=== PATIENT | female | born 1980 ===

== ENCOUNTER 2018-08-31 16:08 | Emergency (ER) | payer SELFPAY ==
[2018-08-31 16:23] VITALS: BP 105/73; PULSE 97; RESP 16; TEMP 99.8; O2SAT 98
--- NOTE | 2018-08-31 17:01 | C.PDOC ---
History Of Present Illness 38-year-old female presents to the ED complaining of generalized, intermittent hives, ongoing for the past couple of days. Patient reports generalized itching. She has a history of asthma, denies any symptoms of exacerbation. Patient reports having previous outpatient allergy testing which revealed the she is allergic to everything. She denies any lip/tongue swelling, difficulty swallowing, difficulty breathing, or fever. Time Seen by Provider: 08/31/18 16:52 Chief Complaint (Nursing): Allergic Reaction History Per: Patient History/Exam Limitations: no limitations Onset/Duration Of Symptoms: Days Current Symptoms Are (Timing): Still Present Possible Cause: Unknown Past Medical History Reviewed: Historical Data, Nursing Documentation, Vital Signs Vital Signs: Last Vital Signs Temp 99.8 F H 08/31/18 16:23 Pulse 97 H 08/31/18 16:23 Resp 16 08/31/18 16:23 BP 105/73 08/31/18 16:23 Pulse Ox 98 08/31/18 16:23 Surgical History: Other Surgeries: Hysterectomy Family History: States: No Known Family Hx - Social History Hx Tobacco Use: No Hx Alcohol Use: No Hx Substance Use: No - Immunization History Hx Tetanus Toxoid Vaccination: No Hx Influenza Vaccination: No Hx Pneumococcal Vaccination: No Review Of Systems Except As Marked, All Systems Reviewed And Found Negative. Constitutional: Negative for: Fever, Chills ENT: Negative for: Mouth Swelling, Throat Swelling Cardiovascular: Negative for: Chest Pain Respiratory: Negative for: Shortness of Breath Gastrointestinal: Negative for: Nausea, Vomiting Skin: Positive for: Rash (generalized hives) Physical Exam - Physical Exam Appears: Non-toxic, No Acute Distress Skin: Warm, Rash (Generalized hives throughout) Head: Atraumatic, Normacephalic Eye(s): bilateral: Normal Inspection, PERRL, EOMI Nose: Normal Oral Mucosa: Moist Tongue: Normal Appearing, Other (No angioedema) Throat: Normal (airway is patent), No Erythema, No Drooling Neck: Normal ROM, Supple Cardiovascular: Rhythm Regular, No Murmur Respiratory: Normal Breath Sounds, No Rales, No Rhonchi, No Wheezing, Other (NARD) Extremity: Bilateral: Atraumatic, Normal ROM Neurological/Psych: Oriented x3, Normal Speech ED Course And Treatment O2 Sat by Pulse Oximetry: 98 (RA) Pulse Ox Interpretation: Normal Medical Decision Making Medical Decision Making: Impression: Urticaria Plan: Patient will be discharged home with prednisone. Advised to follow up with PMD/polisher numeral for further evaluation. Disposition Counseled Patient/Family Regarding: Diagnosis, Need For Followup, Rx Given - Disposition Referrals: YOUR,PMD [Other] Disposition: HOME/ ROUTINE Disposition Time: 17:00 Condition: GOOD Prescriptions: predniSONE [Prednisone] 60 mg PO DAILY #15 tab Instructions: Hives (DC) Forms: [facility] [employer] (Maltese) - Clinical Impression Clinical Impression: Allergic urticaria - Scribe Statement The provider has reviewed the documentation as recorded by the Geovany Houser Provider Attestation: All medical record entries made by the Geovany were at my direction and personally dictated by me. I have reviewed the chart and agree that the record accurately reflects my personal performance of the history, physical exam, medical decision making, and the department course for this patient. I have also personally directed, reviewed, and agree with the discharge instructions and disposition.
== END 2018-08-31 17:12 | disposition home or self-care (01) ==
LOC: C.ER 16:08
DX: L50.0 Allergic urticaria (principal)